=== PATIENT | female | born 1955 | race Two or more races ===

== ENCOUNTER 2017-05-28 06:48 | Day surgery (SDC) | payer BC ==
[~2017-05-28] VITALS: Ht 165.1 cm; Wt 74.5 kg
[2017-05-28] MEDS ORDERED: LOSARTAN (08:23)
[2017-05-28] MEDS ORDERED: LEVOTHYROXINE (08:23)
[2017-05-28 08:24] VITALS: Ht 165.1 cm; Wt 74.5 kg
[2017-05-28 08:33] VITALS: BP 137/73; PULSE 91; RESP 16
[2017-05-28] MEDS ORDERED: MIDAZOLAM 1 MG/ML 2 ML INJ ONE ×2 (09:34→09:35)
[2017-05-28] MEDS ORDERED: FENTAnyl 50 MCG/ML VIAL ONE (09:35)
[2017-05-28 09:51] VITALS: BP 117/73; PULSE 79; RESP 14
--- NOTE | 2017-05-28 13:37 | GILP ---
DATE OF PROCEDURE: 05/28/2017 NAME OF PROCEDURE: Colonoscopy and polypectomy. SURGEON: Marva Cohn MD PREOPERATIVE DIAGNOSIS: Screening colonoscopy. POSTOPERATIVE DIAGNOSES: 1. Colonoscopy all the way to the cecum. 2. Transverse colon polyp was removed using the snare and electrocautery. 3. Internal hemorrhoids. INDICATION: The patient is a 61-year-old female patient who was scheduled for screening colonoscopy. The procedure and possible complications were well explained to the patient. The patient understood and consented to the procedure. DESCRIPTION OF PROCEDURE: Under the influence of fentanyl and Versed, the colonoscope was carefully introduced in the rectum. Under direct vision, it was advanced all the way to the cecum. FINDINGS: The patient had a transverse colon polyp and it was removed using the snare and electrocautery. She had internal hemorrhoids. She tolerated the procedure very well, and there were no complications from the procedure. At the end of the procedure, she was awake with stable vital signs and she was discharged home in care of her family. IMPRESSION: 1. Colonoscopy all the way to the cecum. 2. Transverse colon polyp was removed using the snare and electrocautery. 3. Internal hemorrhoids. PLAN: 1. Await histopathology report. 2. Screening colonoscopy in 5 years. Dictated By: MD ESPERANZA Zaidi/latoya/shai /Document#: [id number]
== END 2017-05-28 13:55 | disposition home or self-care (01) ==
LOC: GIL 06:48
PROVIDERS: ATTEND Internal Medicine Gastroenterology
DX: Z12.11 Encounter for screening for malignant neoplasm of colon (principal); D12.3 Benign neoplasm of transverse colon; K64.8 Other hemorrhoids; I10 Essential (primary) hypertension
CPT/HCPCS: 45380; J2250; J3010; Z7610; 88305